=== PATIENT | female | born 1935 | race Caucasian/White ===

== ENCOUNTER → 2017-01-25 | Outpatient (CLI) | payer OTHER | LOC: FIMAGING 08:32 | PROVIDERS: ATTEND Family Medicine Geriatric Medicine | DX: E80.7 Disorder of bilirubin metabolism, unspecified (principal) ==

== ENCOUNTER 2017-10-26 15:32 | Inpatient (IN) | payer OTHER ==
--- NOTE | 2017-10-26 15:56 | EDPHY ---
HPI/HX/ROS/PE/MDM Narrative: CHIEF COMPLAINT: Dizziness, difficulty with words HISTORY OF PRESENT ILLNESS: The patient is an 82 y/o female with a history of atrial fibrillation complaining of dizziness and difficulty finding words, onset at 08:30, 7.5 hours ago. When her symptoms began she also had difficulty focusing on objects with her eyes. She had difficulty telling her detective investigator what to do. No numbness or tingling in face, no weakness in arms or legs. She laid in bed until 10:00 when she was able to stand. At 14:00, her corrugated box machine operator arrived and noticed that the patient had mild difficulty finding her words. She also seemed more confused than normal. She currently has a mild headache. She does have previous episodes where her vision blacks out, but does not lose consciousness. No fever, chills, chest pain, shortness of breath, palpitations, vomiting, diarrhea, urinary complaints, lightheadedness. REVIEW OF SYSTEMS: Aside from elements discussed in the HPI, a comprehensive 10-point review of systems was reviewed and is negative. PAST MEDICAL HISTORY: Atrial fibrillation, pancreas cancer, breast cancer, hysterectomy, neuroendocrine tumor SOCIAL HISTORY: teacher's assistant at bedside, lives in [place], retired VITAL SIGNS: Reviewed by me GENERAL: Well-developed, well-nourished, resting comfortably in no respiratory distress. HEENT: Atraumatic. Eyes: No icterus, no injection. Mouth: moist mucous membranes. No erythema or lesions. Neck: supple with no adenopathy. LUNGS: Clear to auscultation bilaterally, no wheezes, rhonchi or rales. CARDIAC: Regular rate and rhythm, no rubs, murmurs or gallops. ABDOMEN: Soft, nontender, nondistended, bowel sounds normal. BACK: No CVA tenderness. EXTREMITIES: No trauma. No edema. Range of motion is normal throughout. NEURO: Feels imbalanced while moving in bed. Alert and oriented, cranial nerves II through XII are intact. Motor strength 5 over 5 in all major muscle groups. Sensation intact to light touch. Speech is fluent and articulate. SKIN: Warm and dry, no rash. PSYCHIATRIC: Normal mentation, no agitation. Portions of this note were transcribed by a medical record librarian. I personally performed a history, physical exam, medical decision making, and confirmed accuracy of information the transcribed note. ED Course: The patient is an 82 y/o female with a history of atrial fibrillation presenting with difficulty finding her words and dizziness, onset at 08:30, 7.5 hours ago. Her neuro exam is normal. Head CT, EKG, and chest CT ordered. 1602: Stroke alert called. 1605: Spoke with radiologist regarding this patient's head CT. There is no definite acute infarct visualized. 1610: Reassessed patient. Dr. Stovall, the neurologist from [facility] is currently on evaluating the patient via the tele stroke robot. Upon further questioning she states she was not feeling well in when she woke up. She describes that she had difficulty feeding her pets this morning but is unable to explain why. Based on his information, it is unknown when she was last seen mentating normally. 1623: 12-LEAD EKG: Please see the full report in Trace Master. My interpretation: Sinus rhythm with a rate of 61 1624: Consulted with Dr. Stovall regarding this patient. Patient will undergo angiogram of the head and neck and be admitted to the hospital for further evaluation of TIA. 1705: Spoke with radiologist, no acute findings on the CTA's. This patient will need to be admitted to rule out a TIA. 1731: Consulted with hospitalist service, Dr. Carlos accepts admission of this patient. MDM: Differential diagnoses the patient's presenting complaints was considered including but not limited to intracranial injury, TIA, ischemic cerebrovascular accident, hemorrhagic cerebrovascular accident, hypoglycemia, complex migraine , metastases, tumor, seizure, or electrolyte abnormality - Data Points Imaging Results: Imaging Impressions Chest X-Ray 10/26/17 16:02 Impression: Clear lungs. No acute process. Head CT 10/26/17 16:02 Impression: 1. Mild atrophy. 2. No acute hemorrhage, hydrocephalus, or mass effect. 3. Cerebrovascular atherosclerosis. 4. No definite acute infarct. 5. Severe microvascular ischemic gliosis. 6. Old right occipital lobe infarct and possible old left basal ganglia lacunar infarct. 7. Consider MRI of the brain, if there is continued clinical concern. Findings and recommendations discussed with Emergency Department physician, Dr. Caridad Wilkinson at 1605 hours on October 26, 2017. Final report concurs with initial preliminary interpretation. Head CTA 10/26/17 16:26 Impression: 1. Mild atherosclerotic disease right carotid bulb. 2. No evidence of right carotid flow-limiting stenosis, occlusion or dissection. 3. Patent vertebrobasilar system without evidence of flow-limiting stenosis, occlusion or dissection. 4. Severe cervical spondylosis resulting in severe central canal stenosis at C5- C6. Consider MRI of cervical spine. Measurement of carotid stenosis is based on the residual internal carotid diameter with [place] Symptomatic Carotid Endarterectomy Trial (NASCET) based stenosis levels. CT Angiogram of the Brain Clinical Indications: Word finding difficulty resolved. History of atrial fibrillation, transient ischemic attack. Technique: CT angiogram of the brain and neck was performed with the uneventful intravenous administration of 85 mL Isovue-370 contrast. Multiplanar reconstructions including 3D reconstructions performed and evaluated on Dragon Ports workstation in order to better evaluate the [place] vessels. Images were manipulated by the radiologist at the computer workstation. Dose reduction techniques were utilized. Findings: Major vessels of the [place] are adequately displayed, demonstrating mild atherosclerotic plaque involving bilateral cavernous internal carotid arteries. No Evidence of aneurysm, vascular malformation, flow- limiting stenosis, or occlusion. Bilateral cavernous internal carotid arteries and vertebrobasilar system demonstrates no evidence of flow-limiting stenosis, aneurysm, occlusion, or dissection. Superior sagittal sinus, transverse sinuses , and major veins demonstrate no evidence of intraluminal thrombi. Impression: 1. Mild cerebrovascular atherosclerosis in bilateral cavernous internal carotid arteries. 2. No evidence of vertebral basilar, distal internal carotid artery, or [place] flow-limiting stenosis, occlusion, dissection, or intraluminal thrombi. Findings and recommendations discussed with Emergency Department physician, Dr. Caridad Wilkinson at 1700 hours on October 26, 2017. Final report concurs with initial preliminary interpretation. Neck CTA 10/26/17 16:26 Impression: 1. Mild atherosclerotic disease right carotid bulb. 2. No evidence of right carotid flow-limiting stenosis, occlusion or dissection. 3. Patent vertebrobasilar system without evidence of flow-limiting stenosis, occlusion or dissection. 4. Severe cervical spondylosis resulting in severe central canal stenosis at C5- C6. Consider MRI of cervical spine. Measurement of carotid stenosis is based on the residual internal carotid diameter with [place] Symptomatic Carotid Endarterectomy Trial (NASCET) based stenosis levels. CT Angiogram of the Brain Clinical Indications: Word finding difficulty resolved. History of atrial fibrillation, transient ischemic attack. Technique: CT angiogram of the brain and neck was performed with the uneventful intravenous administration of 85 mL Isovue-370 contrast. Multiplanar reconstructions including 3D reconstructions performed and evaluated on [employer] workstation in order to better evaluate the [place] vessels. Images were manipulated by the radiologist at the computer workstation. Dose reduction techniques were utilized. Findings: Major vessels of the [place] are adequately displayed, demonstrating mild atherosclerotic plaque involving bilateral cavernous internal carotid arteries. No Evidence of aneurysm, vascular malformation, flow- limiting stenosis, or occlusion. Bilateral cavernous internal carotid arteries and vertebrobasilar system demonstrates no evidence of flow-limiting stenosis, aneurysm, occlusion, or dissection. Superior sagittal sinus, transverse sinuses , and major veins demonstrate no evidence of intraluminal thrombi. Impression: 1. Mild cerebrovascular atherosclerosis in bilateral cavernous internal carotid arteries. 2. No evidence of vertebral basilar, distal internal carotid artery, or [place] flow-limiting stenosis, occlusion, dissection, or intraluminal thrombi. Findings and recommendations discussed with Emergency Department physician, Dr. Caridad Wilkinson at 1700 hours on October 26, 2017. Final report concurs with initial preliminary interpretation. Imaging: Discussed imaging studies w/ calliope player Radiologist, I viewed and interpreted images myself Laboratory Results: Laboratory Results 10/26/17 15:56 10/26/17 15:56 10/26/17 10/26/17 10/26/17 16:01 15:56 15:56 WBC RBC Hgb POC Hgb 14.3 gm/dL gm/dL (12.6-16.3) Hct POC Hct 42 % % (38-47) MCV MCH MCHC RDW Plt Count MPV Neut % (Auto) Lymph % (Auto) [place] % (Auto) Eos % (Auto) Baso % (Auto) Nucleat RBC Rel Count Absolute Neuts (auto) Absolute Lymphs (auto) Absolute Monos (auto) Absolute Eos (auto) Absolute Basos (auto) Absolute Nucleated RBC Immature Gran % Immature Gran # PT INR POC Sodium 139 mEq/L mEq/L (135-145) Sodium 136 mEq/L mEq/L (135-145) POC Potassium 3.6 mEq/L mEq/L (3.3-5.0) Potassium 3.8 mEq/L mEq/L (3.5-5.2) POC Chloride 99 mEq/L mEq/L (97-110) Chloride 99 mEq/L mEq/L (97-110) Carbon Dioxide 30 mEq/l mEq/l (22-31) Anion Gap 7 mEq/L L mEq/L (8-16) POC BUN 18 mg/dL mg/dL (7-23) BUN 18 mg/dL mg/dL (7-23) Creatinine 0.8 mg/dL mg/dL (0.6-1.0) POC Creatinine 0.9 mg/dL mg/dL (0.6-1.0) Estimated GFR > 60 Glucose 122 mg/dL H mg/dL (70-100) POC Glucose 132 mg/dL H mg/dL (70-100) Calcium 9.4 mg/dL mg/dL (8.5-10.4) Troponin I < 0.012 ng/mL ng/mL (0.000-0.034) 10/26/17 10/26/17 15:56 15:56 WBC 7.79 10^3/uL 10^3/uL (3.80-9.50) RBC 4.27 10^6/uL 10^6/uL (4.18-5.33) Hgb 13.5 g/dL g/dL (12.6-16.3) POC Hgb Hct 39.5 % % (38.0-47.0) POC Hct MCV 92.5 fL fL (81.5-99.8) MCH 31.6 pg pg (27.9-34.1) MCHC 34.2 g/dL g/dL (32.4-36.7) RDW 15.5 % H % (11.5-15.2) Plt Count 283 10^3/uL 10^3/uL (150-400) MPV 10.0 fL fL (8.7-11.7) Neut % (Auto) 62.5 % % (39.3-74.2) Lymph % (Auto) 23.7 % % (15.0-45.0) [place] % (Auto) 10.1 % % (4.5-13.0) Eos % (Auto) 1.8 % % (0.6-7.6) Baso % (Auto) 1.4 % % (0.3-1.7) Nucleat RBC Rel Count 0.0 % % (0.0-0.2) Absolute Neuts (auto) 4.86 10^3/uL 10^3/uL (1.70-6.50) Absolute Lymphs (auto) 1.85 10^3/uL 10^3/uL (1.00-3.00) Absolute Monos (auto) 0.79 10^3/uL 10^3/uL (0.30-0.80) Absolute Eos (auto) 0.14 10^3/uL 10^3/uL (0.03-0.40) Absolute Basos (auto) 0.11 10^3/uL H 10^3/uL (0.02-0.10) Absolute Nucleated RBC 0.00 10^3/uL 10^3/uL (0-0.01) Immature Gran % 0.5 % % (0.0-1.1) Immature Gran # 0.04 10^3/uL 10^3/uL (0.00-0.10) PT 12.5 SEC SEC (12.0-15.0) INR 0.91 (0.83-1.16) POC Sodium Sodium POC Potassium Potassium POC Chloride Chloride Carbon Dioxide Anion Gap POC BUN BUN Creatinine POC Creatinine Estimated GFR Glucose POC Glucose Calcium Troponin I Point of Care Test Results: 10/26/17 16:01 POC Sodium 139 POC Potassium 3.6 POC Chloride 99 POC BUN 18 POC Creatinine 0.9 POC Glucose 132 H General Time Seen by Provider: 10/26/17 15:46 Initial Vital Signs: Initial Vital Signs Temperature (C) 36.5 C 10/26/17 15:38 Heart Rate 67 10/26/17 15:38 Respiratory Rate 18 10/26/17 15:38 Blood Pressure 153/74 H 10/26/17 15:38 O2 Sat (%) 95 10/26/17 15:38 O2 Delivery Mode Room Air Allergies/Adverse Reactions: latex Allergy (Verified 10/26/17 15:37) Home Medications: Medication Instructions Recorded Aspirin 81mg (OTC) 81 mg PO DAILY 03/11/15 Fluticasone Nasal [Flonase Nasal 2 sprays NASAL DAILY 03/11/15 [place]] Herbals/Supplements -Info Only 1 ea PO DAILY 03/11/15 Lact Cmb2/S.thermophl/Bif Cmb1 1 each PO DAILY 03/11/15 [Vsl#3 Cap (*)] Lipase/Protease/Amylase [Rikki Ibrahim 2 each PO TIDMEAL 03/11/15 36,000 Units Capsule] Multivitamins [Multivitamin (*)] 1 each PO DAILY 03/11/15 [place]-3 Fatty Acids [Fish Oil 1000 3,000 mg PO DAILY 03/11/15 mg (*)] Solifenacin Succinate [Vesicare] 10 mg PO DAILY 03/11/15 Vitamin D Drop 20,000 unit PO DAILY 03/11/15 cycloSPORINE 0.05% [Restasis Opht 1 drop EACHEYE BID 03/11/15 Drops(*)] Departure - Departure Disposition: [facility] Inpatient Acute Clinical Impression: Word finding difficulty, Confusion TIA (transient ischemic attack) Qualifiers: Transient cerebral ischemia type: other Qualified Code(s): G45.8 - Other transient cerebral ischemic attacks and related syndromes Condition: Fair Report Scribed for: Caridad Wilkinson Report Scribed by: Mariann Banda Date of Report: 10/26/17 Time of Report: 15:54
[2017-10-26 16:07] LABS: PLATELET COUNT 283 10^3/uL (150-400)
[2017-10-26 16:19] LABS: INR 0.91 (0.83-1.16); PROTIME(PATIENT) 12.5 SEC (12.0-15.0)
--- NOTE | 2017-10-26 16:25 | CPEKG ---
Heart Rate: 61 RR Interval: 984 P-R Interval: 216 QRSD Interval: 84 QT Interval: 420 QTC Interval: 423 P [place]: 45 QRS [place]: 44 T Wave [place]: 82 EKG Severity - NORMAL ECG - EKG Impression: SINUS RHYTHM Electronically Signed By: Caridad Wilkinson 26-Oct-2017 21:21:44
[2017-10-26] MEDS ORDERED: IOPAMIDOL (ISOVUE 370) 100 ML BTL IV ONE (16:33)
[2017-10-26] MEDS ORDERED: ONDANSETRON DISINTEGRATING 4 MG TAB PO PRN (20:37)
[2017-10-26] MEDS ORDERED: ONDANSETRON 4 MG/2 ML VIAL IVP PRN (20:37)
[2017-10-26] MEDS ORDERED: ACETAMINOPHEN 325 MG TAB PO PRN (20:37)
--- NOTE | 2017-10-26 20:46 | PDGENHP ---
History and Physical - Chief Complaint dizzyness, word finding difficulty - History of Present Illness The patient is an 82 y/o female with a history of atrial fibrillation, not on chronic AC, vestibular disease with vertigo, who had dizziness and difficulty finding words, onset at 08:30. When her symptoms began she also had difficulty focusing on objects with her eyes. She had difficulty telling her media marketing specialist what to do. No numbness or tingling in face, no weakness in arms or legs. She laid in bed until 10:00 when she was able to stand. At 14:00, her broom machine operator arrived and noticed that the patient had mild difficulty finding her words. She also seemed more confused than normal and she presented to the E.D. IN the E.D., [place] neurology was consulted. A CT Head, CTA Head/Neck were unremarkable for acute issues. She is now back to baseline and is seen on the third floor. She has longstanding Vestibular disease and vertigo but she reports that these symptoms were different. She has a hx of pAfib for over 10 years and she is on a low dose Aspirin. She does no want AC going forward as her had some sort of bleeding event. She denies palpitations. She does not recall the last time she was in Afib. EKG shows NSR. No e/o Afib. She denies HLD or DM No fever, chills, chest pain, shortness of breath, palpitations, vomiting, diarrhea, urinary complaints, lightheadedness. PAST MEDICAL HISTORY: Atrial fibrillation, breast cancer, hysterectomy, neuroendocrine tumor in the pancreas, verstibular disease PSHx: bilateral Mastectomy, Pancreas tail resection SOCIAL HISTORY: assistant in nursing at bedside, lives in [place], retired FmHx: parents are History Information - Allergies/Home Medication List Allergies/Adverse Reactions: latex Allergy (Verified 10/26/17 15:37) Home Medications: Aspirin [Aspirin 81mg (*)] 81 mg PO HS #0 03/11/15 [Last Taken 10/26/17] Fluticasone Nasal [Flonase Nasal [place]] 2 sprays NASAL DAILY 03/11/15 [Last Taken 10/26/17] Herbals/Supplements -Info Only 1 ea PO DAILY 03/11/15 [Last Taken 10/26/17] Lact Cmb2/S.thermophl/Bif Cmb1 [Vsl#3 Cap (*)] 1 each PO DAILY 03/11/15 [Last Taken 10/26/17] Lipase/Protease/Amylase [Rikki Ibrahim 36,000 Units Capsule] 2 each PO TIDMEAL [Last Taken 10/26/17] Multivitamins [Multivitamin (*)] 1 each PO DAILY 03/11/15 [Last Taken Unknown] [place]-3 Fatty Acids [Fish Oil 1000 mg (*)] 3,000 mg PO DAILY 03/11/15 [Last Taken 10/26/17] cycloSPORINE 0.05% [Restasis Opht Drops(*)] 1 drop EACHEYE BID 03/11/15 [Last Taken 10/25/17] Mirabegron [Myrbetriq] 50 mg PO DAILY 10/26/17 [Last Taken 10/26/17] I have personally reviewed and updated: medical history, social history - Social History Smoking Status: Never smoked Review of Systems Review of Systems: ROS: 10pt was reviewed & negative except for what was stated in HPI & below Physical Exam Physical Exam: Temp Pulse Resp BP Pulse Ox 36.5 C 86 18 148/86 H 96 10/26/17 15:38 10/26/17 20:06 10/26/17 19:29 10/26/17 20:06 10/26/17 19:29 Constitutional: no apparent distress, appears nourished Eyes: PERRL, EOMI Ears, Nose, Mouth, Throat: moist mucous membranes, hearing normal, No dry mucous membranes Cardiovascular: regular rate and rhythym, No edema Respiratory: no respiratory distress Gastrointestinal: normoactive bowel sounds, soft, non-tender abdomen Genitourinary: no bladder fullness Skin: warm Musculoskeletal: full muscle strength Neurologic: AAOx3, CN II-XII Intact, No weakness, No facial droop Lymph, Heme, Immunologic: No petechiae Lab Data & Imaging Review 10/26/17 15:56 10/26/17 15:56 WBC 7.79 10^3/uL (3.80-9.50) 10/26/17 15:56 RBC 4.27 10^6/uL (4.18-5.33) 10/26/17 15:56 Hgb 13.5 g/dL (12.6-16.3) 10/26/17 15:56 POC Hgb 14.3 gm/dL (12.6-16.3) 10/26/17 16:01 Hct 39.5 % (38.0-47.0) 10/26/17 15:56 POC Hct 42 % (38-47) 10/26/17 16:01 MCV 92.5 fL (81.5-99.8) 10/26/17 15:56 MCH 31.6 pg (27.9-34.1) 10/26/17 15:56 MCHC 34.2 g/dL (32.4-36.7) 10/26/17 15:56 RDW 15.5 % (11.5-15.2) H 10/26/17 15:56 Plt Count 283 10^3/uL (150-400) 10/26/17 15:56 MPV 10.0 fL (8.7-11.7) 10/26/17 15:56 Neut % (Auto) 62.5 % (39.3-74.2) 10/26/17 15:56 Lymph % (Auto) 23.7 % (15.0-45.0) 10/26/17 15:56 [place] % (Auto) 10.1 % (4.5-13.0) 10/26/17 15:56 Eos % (Auto) 1.8 % (0.6-7.6) 10/26/17 15:56 Baso % (Auto) 1.4 % (0.3-1.7) 10/26/17 15:56 Nucleat RBC Rel Count 0.0 % (0.0-0.2) 10/26/17 15:56 Absolute Neuts (auto) 4.86 10^3/uL (1.70-6.50) 10/26/17 15:56 Absolute Lymphs (auto) 1.85 10^3/uL (1.00-3.00) 10/26/17 15:56 Absolute Monos (auto) 0.79 10^3/uL (0.30-0.80) 10/26/17 15:56 Absolute Eos (auto) 0.14 10^3/uL (0.03-0.40) 10/26/17 15:56 Absolute Basos (auto) 0.11 10^3/uL (0.02-0.10) H 10/26/17 15:56 Absolute Nucleated RBC 0.00 10^3/uL (0-0.01) 10/26/17 15:56 Immature Gran % 0.5 % (0.0-1.1) 10/26/17 15:56 Immature Gran # 0.04 10^3/uL (0.00-0.10) 10/26/17 15:56 PT 12.5 SEC (12.0-15.0) 10/26/17 15:56 INR 0.91 (0.83-1.16) 10/26/17 15:56 POC Sodium 139 mEq/L (135-145) 10/26/17 16:01 Sodium 136 mEq/L (135-145) 10/26/17 15:56 POC Potassium 3.6 mEq/L (3.3-5.0) 10/26/17 16:01 Potassium 3.8 mEq/L (3.5-5.2) 10/26/17 15:56 POC Chloride 99 mEq/L (97-110) 10/26/17 16:01 Chloride 99 mEq/L (97-110) 10/26/17 15:56 Carbon Dioxide 30 mEq/l (22-31) 10/26/17 15:56 Anion Gap 7 mEq/L (8-16) L 10/26/17 15:56 POC BUN 18 mg/dL (7-23) 10/26/17 16:01 BUN 18 mg/dL (7-23) 10/26/17 15:56 Creatinine 0.8 mg/dL (0.6-1.0) 10/26/17 15:56 POC Creatinine 0.9 mg/dL (0.6-1.0) 10/26/17 16:01 Estimated GFR > 60 10/26/17 15:56 Glucose 122 mg/dL (70-100) H 10/26/17 15:56 POC Glucose 132 mg/dL (70-100) H 10/26/17 16:01 Calcium 9.4 mg/dL (8.5-10.4) 10/26/17 15:56 Troponin I < 0.012 ng/mL (0.000-0.034) 10/26/17 15:56 Urine Color YELLOW 10/26/17 17:00 Urine Appearance CLEAR 10/26/17 17:00 Urine pH 7.0 (5.0-7.5) 10/26/17 17:00 Ur Specific [place] 1.015 (1.002-1.030) 10/26/17 17:00 Urine Protein NEGATIVE (NEGATIVE) 10/26/17 17:00 Urine Ketones NEGATIVE (NEGATIVE) 10/26/17 17:00 Urine Blood NEGATIVE (NEGATIVE) 10/26/17 17:00 Urine Nitrate NEGATIVE (NEGATIVE) 10/26/17 17:00 Urine Bilirubin NEGATIVE (NEGATIVE) 10/26/17 17:00 Urine Urobilinogen NEGATIVE EU (0.2-1.0) 10/26/17 17:00 Ur Leukocyte Esterase 1+ (NEGATIVE) H 10/26/17 17:00 Urine RBC 1-3 /hpf (0-3) 10/26/17 17:00 Urine WBC 3-5 /hpf (0-3) H 10/26/17 17:00 Ur Epithelial Cells NONE SEEN /lpf (NONE-1+) 10/26/17 17:00 Urine Mucus TRACE /lpf (NONE-1+) 10/26/17 17:00 Urine Glucose NEGATIVE (NEGATIVE) 10/26/17 17:00 Assessment & Plan Assessment: #Confusion (Acute) #?TIA (transient ischemic attack) vs other to include Vertigo/Vestibular sx's #pAfib, no e/o on EKG Plan: Ill increase her Aspirin to full dose monitor on Telemetry to determine if there is afib She does not want to be on AC so if needed, we will need to discus pros and cons closely check for risk factors, lipid panel, a1c PT/OT Hold off on TTE Permissive HTN tonight if she develops it I will hold off on obtaining an MRI DNR Lovenox for DVT proph
[2017-10-26] MEDS: ASPIRIN 325 MG TAB PO SCH (21:34)
[2017-10-26] MEDS: cycloSPORINE 0.05% 30 DROPERETTE/BOX EACHEYE SCH (21:47)
[2017-10-27 05:05] LABS: PLATELET COUNT 278 10^3/uL (150-400)
[2017-10-27] MEDS ORDERED: Herbals/Supplements -Info Only PO SCH (09:00)
--- NOTE | 2017-10-27 09:08 | CPEKG ---
Heart Rate: 66 RR Interval: 909 P-R Interval: 184 QRSD Interval: 88 QT Interval: 412 QTC Interval: 432 P [place]: 78 QRS [place]: 57 T Wave [place]: 69 EKG Severity - BORDERLINE ECG - EKG Impression: SINUS RHYTHM EKG Impression: BORDERLINE T ABNORMALITIES, ANT-LAT LEADS Electronically Signed By: Chandan Alexander 27-Oct-2017 20:40:48
--- NOTE | 2017-10-27 09:31 | NEUROPROG ---
Assessment: HOSPITAL NEUROLOGY CONSULT REQUESTING: Nafisa Rich NP REASON: word finding problems HPI: 82 year old right-handed woman presented to our ED yesterday with concern for a stroke/TIA. History is obtained from the record, as the patient cannot recall the events of yesterday. She lives with her daughter, who is her primary physician president. I cannot find any documentation on any baseline cognitive challenges. She apparently started feeling dizzy around 0830 on day of admission. This was accompanied by word finding trouble and confusion. She also apparently reported difficulty focusing her vision, but nothing more specific. This concerned her daughter, who arrived home around 1400. She was brought to the ED as a stroke alert, but not given tPA due to being out of the thrombolytic window. CTA showed no hemodynamically significant stenosis or occlusions amenable to intervention. She was admitted for further workup. There was no indication of focal weakness, sensory loss, gait change, speech change. She has chronic episodic vertigo. She also has a history of syncope and afib. She has refused anticoagulation against medical advice and only takes ASA 81mg daily. She has experienced episodes of AMS in the past related to dehydration. ROS: As per the HPI, otherwise a complete 12 point ROS was performed and is negative ALLERGIES AND MEDS: As recorded in the EMR - reviewed and reconciled PFSH: As per the intake H&P by Dr. Carlos from yesterday EXAM: VS reviewed in EMR GEN: WDWN sitting in NAD HEENT: NCAT, sclera anicteric, conjunctiva not injected, MMM, oropharynx clear, no scalp tenderness NECK: supple, nontender, no meningismus CV: RRR s1 s2 wo m/r/c/g. Carotid pulses 2+ wo bruit NEURO: MS: awake, alert, oriented to self only. Speech nondysarthric. On formal language testing she is able to read, write, repeat, name, comprehend without difficulty. On casual conversation she seems to pause frequently, as if trying to recall information - she seems to either be experiencing word finding issues not apparent on formal testing or recall issues. Follows commands. Attends to both sides. Episodic/recent memory impaired on casual conversation. Mood euthymic. Good fund of knowledge. CN: pupils 3mm round and reactive. Unable to visualize. VFF. Primary gaze centered. Restricted vertical gaze. Smooth pursuits with saccadic intrusions. Facial sensation preserved. Face symmetric. Hearing grossly intact to finger rub. Palatoglossal movements intact. Shoulder shrug and head turn strong. MOTOR: normal bulk/tone. No adventitial movements. Full power throughout. SENSORY: symmetric/intact LT/PP in extremities. No extinction. COORD: no ataxia FN/HS. Mellisa preserved. REFLEX: plantars down. No clonus. DTRS absent. GAIT: deferred to PT safety eval DATA REVIEW: Labs reviewed in EMR LDL 124 A1c 6 PERSONALLY INTERPRETED RESULTS AND DATA: CT head wo - global volume loss. 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 CTA head/neck per HPI IMPRESSION AND RECOMMENDATIONS: // WORD FINDING DIFFICULTY // COGNITIVE IMPAIRMENT // VERTIGO // AFIB NOT ON ANTICOAGULATION Patient with ongoing word finding vs. memory impairment. Her vertigo and vision focusing issues seem to have resolved. I recommend MRI brain wo given ongoing symptoms to further evaluate for ischemia to language centers or mesial temporal structures. Embolic shower can also produce similar symptoms. She has evidence of prior infarcts on CT, so vascular risk optimization of utmost importance. She should certainly reconsider anticoagulation. - MRI brain wo - cont ASA - increased to 325mg - permissive HTN until MRI resulted - add statin for goal LDL < 70 - A1c at goal < 6.5 - check TTE - PT/OT/TIGHT ROPE WALKER consults - stroke education - further recommendations pending MRI results Objective: Vital Signs Temp Pulse Resp BP Pulse Ox 36.7 C 75 18 124/69 H 93 10/27/17 08:00 10/27/17 08:00 10/27/17 08:00 10/27/17 08:00 10/27/17 08:00 Laboratory Results 10/27/17 04:14 10/27/17 04:14 PT 12.5 SEC (12.0-15.0) 10/26/17 15:56 INR 0.91 (0.83-1.16) 10/26/17 15:56 Allergies/Adverse Reactions: latex Allergy (Verified 10/26/17 15:37)
[2017-10-27] MEDS: MULTIVITAMINS 1 EACH TAB PO SCH (10:06)
[2017-10-27] MEDS: ASPIRIN 325 MG TAB PO SCH (10:06)
[2017-10-27] MEDS: ENOXAPARIN 40 MG/0.4 ML SYR SC SCH (10:07)
[2017-10-27] MEDS: Lipase/Protease/Amylase [Creon Dr 36,000 Units Capsule] PO SCH ×3 (10:07→19:20)
[2017-10-27] MEDS: VSL#3 1 EACH CAP PO SCH (10:07)
[2017-10-27] MEDS: OMEGA-3 FATTY ACIDS 1,000 MG CAP PO SCH (10:07)
[2017-10-27] MEDS: Mirabegron [Myrbetriq] 50 MG PO SCH (10:08)
--- NOTE | 2017-10-27 11:44 | ECHO ---
[email or web address] [address] [address] Main: [phone] Fax: Transthoracic Echocardiogram Name: RJ BALDERAS MR#: [id number] Study Date: 10/27/2017 Study Time: 10:05 AM Date of : 1935 Age: 82 year(s) Height: 175.3 cm (69 in.) Weight: 68.04 kg (150 lb.) BSA: 1.83 m2 Gender: Female Examination: Echo Indication: Word finding difficulties/stroke eval/hx Afib not on anticoag Image Quality: Contrast: Requested by: Tay Sanabria BP: 124 mmHg/69 mmHg Heart Rate: Rhythm: Indication: Word finding difficulties/stroke eval/hx Afib not on anticoag Procedure Staff Weigh Machine Operator: Kiana Handy RDCS Reading Physician: Tal Clements MD Requesting Provider: Conclusions: Normal study Measurements: Chambers Valvular Assessment AV/MV Valvular Assessment TV/PV Normal Normal Normal Name Value Range Name Value Range Name Value Range Ao Christina (MM): 3.3 cm (2.2 cm-3.7 AV Vmax: 1.05 m/s (1 m/s-1.7 cm) m/s) IVSd (2D): 0.6 cm (0.6 cm-1.1 AV maxP mmHg ( - ) cm) MV E Vmax: 0.66 m/s ( - ) LVDd (2D): 4.3 cm (3.9 cm-5.3 MV A Vmax: 0.74 m/s ( - ) cm) MV E/A: 0.89 ( - ) LVDs (2D): 2.2 cm (2.1 cm-4 cm) LVPWd (2D): 0.8 cm ( - ) LVEF (MOD4): 73 % (>=55 %) Continued Measurements: Chambers Valvular Assessment AV/MV Name Value Name Value LADs: 3.3 cm MV E/E' Septal: 9.50 MV E/E' Lateral: 12.00 Findings: Left Ventricle: Normal size left ventricle. Mild concentric LV hypertrophy. Normal global systolic LV function. EF is 73 %. No regional wall motion abnormality. Normal diastolic LV function. Patient: RJ BALDERAS Study Date: 10/27/2017 Page 1 of 2 10:05 AM Right Ventricle: Normal size right ventricle. Left Atrium: The left atrium is normal in size. An agitated saline study was performed and was negative for intracardiac shunting. Right Atrium: The right atrium is normal in size. Mitral Valve: The mitral valve is normal in appearance and function. Aortic Valve: The aortic valve is normal in appearance and function. Tricuspid Valve: The tricuspid valve is normal in appearance and function. Mild tricuspid regurgitation is present. Pulmonic Valve: Pulmonary valve not well visualized. Aorta: The aorta is normal. Pericardium: No pericardial effusion. (No Signature Object) Patient: RJ BALDERAS Study Date: 10/27/2017 Page 2 of 2 10:05 AM [id number]
--- NOTE | 2017-10-27 13:21 | HOSPPROG ---
Hospitalist Progress Note Assessment/Plan: 82y female with c/o confusion and word finding problems. First encounter, chart reviewed. D/W CM. # Word finding problem -neurology consult -logger eval -MRI of brain # Cognitive impairment with confusion -baseline unclear -cont to eval - A1c at goal < 6.5 - check TTE -tele monitor # Vertigo -intermittent #HTN - permissive HTN until MRI resulted #Elevated cholesterol - add lipitor for goal LDL < 70 # Afib -monitor tele -not anticoagulated -d/w pt, deferred to daughter -will review with daughter when present - cont ASA - increased to 325mg # DNR #DVT Proph -Lovenox for DVT proph Subjective: Still some confusion. No pain or other issues. Objective: Vital Signs Temp Pulse Resp BP Pulse Ox 36.6 C 75 16 110/55 L 92 10/27/17 11:33 10/27/17 11:33 10/27/17 11:33 10/27/17 11:33 10/27/17 11:33 Laboratory Results 10/27/17 04:14 10/27/17 04:14 10/26/17 10/27/17 10/28/17 05:59 05:59 05:59 Intake Total 400 Balance 400 PT 12.5 SEC (12.0-15.0) 10/26/17 15:56 INR 0.91 (0.83-1.16) 10/26/17 15:56 - Physical Exam Constitutional: appears nourished, not in pain, chronically ill appearing Eyes: PERRL, anicteric sclera, EOMI Ears, Nose, Mouth, Throat: moist mucous membranes, hearing normal, ears appear normal Cardiovascular: regular rate and rhythym, No JVD, No tachycardia Respiratory: no respiratory distress, no rales or rhonchi, clear to auscultation Gastrointestinal: normoactive bowel sounds, No tenderness, No ascites Skin: warm, normal color, No mottled Musculoskeletal: normal joint ROM, no joint effusions, generalized weakness Neurologic: AAOx3 Psychiatric: interacting appropriately, not encephalopathic, poor insight, poor judgement, poor memory ICD10 Worksheet Patient Problems: Problems Problem Status Onset Confusion Acute TIA (transient ischemic attack) Acute Word finding difficulty Acute Vertigo Acute
--- NOTE | 2017-10-27 13:24 | ASMTCMCOM ---
CM Note CM Note Notes: Discussed w/hospitalist; pt still being worked up. DC needs not clear yet, awaiting therapy recommendations. Pt lives at home w/daughter. CM will follow. Date Signed: 10/27/2017 01:24 PM Electronically Signed By:Lelo Wolf RN
[2017-10-27] MEDS: FLUTICASONE NASAL 120 SPRAYS/16 GM MDI EACHNARE SCH (14:54)
[2017-10-27] MEDS: cycloSPORINE 0.05% 30 DROPERETTE/BOX EACHEYE SCH ×2 (14:55→21:05)
--- NOTE | 2017-10-27 16:46 | PDMN ---
Medical Necessity Medical necessity: Patient meets inpatient criteria per STEEL WORKER note, CMS guidelines , and [facility] (altered mental status that is severe or persistent: ongoing confusion/difficulty wordfinding; history of previous CVA's and atrial fib, has refused anticoagulation other than ASA, LOS will be > 2 midnights for ongoing evaluation of possible cerebral ischemia to language centers/awaiting MRI, ongoing PT/OT.)
[2017-10-27] MEDS ORDERED: BISACODYL 10 MG SUPP PR PRN (20:07)
[2017-10-27] MEDS ORDERED: LACTULOSE 20 GM/30 ML UDCUP PO PRN (20:07)
[2017-10-27] MEDS ORDERED: MAGNESIUM HYDROXIDE 30 ML UDCUP PO PRN (20:07)
[2017-10-27] MEDS: POLYETHYLENE GLYCOL 3350 17 GM PKT PO PRN (20:58)
[2017-10-27] MEDS: SENNOSIDES/DOCUSATE SODIUM TAB PO SCH (20:59)
[2017-10-28] MEDS: Mirabegron [Myrbetriq] 50 MG PO SCH (08:22)
[2017-10-28] MEDS: Lipase/Protease/Amylase [Creon Dr 36,000 Units Capsule] PO SCH ×2 (08:22→13:26)
[2017-10-28] MEDS: POLYETHYLENE GLYCOL 3350 17 GM PKT PO PRN (08:29)
[2017-10-28] MEDS: VSL#3 1 EACH CAP PO SCH (08:31)
[2017-10-28] MEDS: SENNOSIDES/DOCUSATE SODIUM TAB PO SCH (08:31)
[2017-10-28] MEDS: ASPIRIN 325 MG TAB PO SCH (08:31)
[2017-10-28] MEDS: OMEGA-3 FATTY ACIDS 1,000 MG CAP PO SCH (08:32)
[2017-10-28] MEDS: MULTIVITAMINS 1 EACH TAB PO SCH (08:32)
[2017-10-28] MEDS: ENOXAPARIN 40 MG/0.4 ML SYR SC SCH (08:33)
[2017-10-28] MEDS: cycloSPORINE 0.05% 30 DROPERETTE/BOX EACHEYE SCH (08:33)
[2017-10-28] MEDS ORDERED: ATORVASTATIN CALCIUM 20 MG TAB PO SCH ×2 (09:00→11:19)
--- NOTE | 2017-10-28 11:18 | NEUROPROG ---
Assessment: BACKGROUND: 10/27 82 year old right-handed woman presented to our ED yesterday with concern for a stroke/TIA. History is obtained from the record, as the patient cannot recall the events of yesterday. She lives with her daughter, who is her primary finishing supervisor plastic sheets. I cannot find any documentation on any baseline cognitive challenges. She apparently started feeling dizzy around 0830 on day of admission. This was accompanied by word finding trouble and confusion. She also apparently reported difficulty focusing her vision, but nothing more specific. This concerned her daughter, who arrived home around 1400. She was brought to the ED as a stroke alert, but not given tPA due to being out of the thrombolytic window. CTA showed no hemodynamically significant stenosis or occlusions amenable to intervention. She was admitted for further workup. There was no indication of focal weakness, sensory loss, gait change, speech change. She has chronic episodic vertigo. She also has a history of syncope and afib. She has refused anticoagulation against medical advice and only takes ASA 81mg daily. She has experienced episodes of AMS in the past related to dehydration. INTERVAL HISTORY: 10/28: Patient feels her language function and cognition is much better. No new complaints. No events overnight. EXAM: VS reviewed in EMR GEN: WDWN sitting in NAD MS: awake, alert, oriented to all spheres. Speech nondysarthric. On formal language testing she is able to read, write, repeat, name, comprehend without difficulty. Casual conversation is back to normal today. Follows commands. Attends to both sides. Memory seems normal today on casual conversation. Mood euthymic. Good fund of knowledge. CN: pupils 3mm round and reactive. VFF. Primary gaze centered. Restricted vertical gaze. Smooth pursuits with saccadic intrusions. Facial sensation preserved. Face symmetric. Hearing grossly intact to finger rub. Palatoglossal movements intact. Shoulder shrug and head turn strong. MOTOR: normal bulk/tone. No adventitial movements. Full power throughout. SENSORY: symmetric/intact LT/PP in extremities. No extinction. COORD: no ataxia FN/HS. Mellisa preserved. REFLEX: plantars down. No clonus. DTRS absent. GAIT: deferred to PT safety eval DATA REVIEW: Labs reviewed in EMR LDL 124 A1c 6 PERSONALLY INTERPRETED RESULTS AND DATA: CT head wo - global volume loss. 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 CTA head/neck per HPI MRI brain wo - global volume loss. Profound confluent periventricular microvascular ischemic change. Chronic right occipital infarct, chronic left basal ganglia infarct. A couple areas of punctate acute infarct in the left frontal lobe. Multitude of scattered SWI signal changes in the cortex, subcortical white matter, basal ganglia, posterior fossa most consistent with amyloid angiopathy. IMPRESSION AND RECOMMENDATIONS: // ACUTE ISCHEMIC STROKE // WORD FINDING DIFFICULTY - RESOLVED // COGNITIVE IMPAIRMENT - IMPROVED // CEREBRAL AMYLOID ANGIOPATHY // VERTIGO // AFIB NOT ON ANTICOAGULATION Patient with word finding issues and expressive language dysfunction in the setting of MRI evidence of left frontal lobe infarcts, likely from her afib. Her MRI also discovered profound cerebral amyloid angiopathy. With that finding anticoagulation would be contraindicated. I discussed the findings with the patient and her daughter at length. I recommend continuing on ASA 81mg daily as the safest antithromboembolic strategy. I do think it is worth having her consult with our structural heart team for consideration of a EDILBERTO occlusion procedure to minimize her risk of stroke. - MRI brain wo - cont ASA - 81mg daily - goal normotension - high intensity statin for goal LDL < 70 - A1c at goal < 6.5 - PT/OT/WAITER/WAITRESS INFORMAL consults - stroke education - can be discharged home today after WAITER/WAITRESS INFORMAL eval for therapy recommendations after discharge. - followup PCP, structural heart after discharge - followup with neurology in 10 weeks 40 mins in direct patient care activities on the floor with most spent in counseling patient and daughter. Objective: Vital Signs Temp Pulse Resp BP Pulse Ox 36.3 C 76 18 125/70 H 91 L 10/28/17 07:47 10/28/17 07:47 10/28/17 07:47 10/28/17 07:47 10/28/17 07:47 10/27/17 10/28/17 10/29/17 05:59 05:59 05:59 Intake Total 200 Balance 200 PT 12.5 SEC (12.0-15.0) 10/26/17 15:56 INR 0.91 (0.83-1.16) 10/26/17 15:56 Allergies/Adverse Reactions: gluten Allergy (Verified 10/27/17 21:43) latex Allergy (Verified 10/26/17 15:37)
--- NOTE | 2017-10-28 11:35 | PDIAF ---
- Diagnosis Diagnosis: cva Code Status: Do Not Resuscitate - Medication Management Discharge Medications: Medications to Continue on Transfer Aspirin [Aspirin 81mg (*)] 81 mg PO HS #0 03/11/15 [Last Taken 10/26/17] Fluticasone Nasal [Flonase Nasal [place]] 2 sprays NASAL DAILY 03/11/15 [Last Taken 10/26/17] Herbals/Supplements -Info Only 1 ea PO DAILY 03/11/15 [Last Taken 10/26/17] Lact Cmb2/S.thermophl/Bif Cmb1 [Vsl#3 Cap (*)] 1 each PO DAILY 03/11/15 [Last Taken 10/26/17] Lipase/Protease/Amylase [Rikki Ibrahim 36,000 Units Capsule] 2 each PO TIDMEAL [Last Taken 10/26/17] Multivitamins [Multivitamin (*)] 1 each PO DAILY 03/11/15 [Last Taken Unknown] [place]-3 Fatty Acids [Fish Oil 1000 mg (*)] 3,000 mg PO DAILY 03/11/15 [Last Taken 10/26/17] cycloSPORINE 0.05% [Restasis Opht Drops(*)] 1 drop EACHEYE BID 03/11/15 [Last Taken 10/25/17] Mirabegron [Myrbetriq] 50 mg PO DAILY 10/26/17 [Last Taken 10/26/17] Acetaminophen [Tylenol 325mg (*)] 650 mg PO Q4HRS PRN tab 10/28/17 [Last Taken Unknown] Atorvastatin Calcium [Lipitor 20 mg (*)] 40 mg PO DAILY #60 tab 10/28/17 [Last Taken Unknown] Polyethylene Glycol 3350 [Miralax 17 gm (*)] 17 gm PO DAILY PRN pkt 10/28/17 [ Last Taken Unknown] Sennosides/Docusate Sodium [Senokot-S] 1 - 2 tab PO BID tab 10/28/17 [Last Taken Unknown] Discharge Medications: Refer to the Discharge Home Medication list for PRN reason. PICC Care - Routine: N/A - Orders Services needed: Home Care, Physical Therapy, Occupational Therapy, Speech Language Pathologist Home Care Face to Face: I certify that this patient was under my care and that I had the required [id number] encounter meeting the encounter requirements on the discharge day. My findings support the fact that the patient is homebound as defined in Home Care Face to Face Continued: CMS Chapter 7 Medicare Benefits Manual 30.1.1 , The condition of the patient is such that there exists a normal inability to leave home and consequently, leaving home would require a considerable and taxing effort. Diet Recommendation: no restrictions on diet - Follow Up Care Current Providers and Referrals: Brittany Lacey MD [Primary Care Provider] -
[2017-10-28 11:41] VITALS: BP 119/71; PULSE 61; RESP 16; TEMP 97.6; O2SAT 94
--- NOTE | 2017-10-28 13:02 | ASMTCMCOM ---
CM Note CM Note Notes: Dc order received. Spoke with OIL FIELD TECHNICIAN. PT recommending home vs HHC. Met with pt, her daughter Maegan ([phone]) & one of pt's private duty caregivers; pt agreeable to [facility] for ST/OT/PT. Address & phone number confirmed. Discussed HHC agencies; [facility] chosen. Spoke with Daniela, at [facility]; informed [facility] doesnt take [employer] advantage plans. Alerted pt & Maegan; Chauncey [facility] chosen. Spoke with Jeremiah ([phone]), at [facility]; informed [facility] will need an insurance auth from [employer], but that wont happen until Monday, 10/30; Jeremiah agreeable to accepting pt at this time & will attempt to get auth on Monday. If Jeremiah cannot get [employer] auth she will assist pt in getting home care arranged with an agency that can. Jeremiah provided with pt's contact info. Jeremiah to followup with pt's daughter Maegan later today. Dc paperwork faxed to [facility]; confirmed received. Updated pt, Maegan & RN. No other needs at this time. Date Signed: 10/28/2017 01:01 PM Electronically Signed By:Annetta Duffy, RN
--- NOTE | 2017-10-28 13:04 | ASDISCHSUM ---
Discharge Information Plan Status:Home with Home Health Medically Cleared to Leave:10/27/2017 Discharge Date:10/27/2017 CM D/C Disposition:Home Health w Planned Readm iss ADT D/C Disposition:Home Health Service Projected Discharge Date:10/28/2017 01:00 PM Transportation at D/C:Family Discharge Delay Reason: Follow-Up Date:10/28/2017 01:00 PM Discharge Slot: Final Diagnosis: Placement Information Referral Type:*Home Health Care Services Referral ID:[id number] Provider Name:[facility] Address 1:[address] [address] Address 2: City:[place] Selection Factors: State:[place] Patient Contact Information Contact Name:KATEBLANKJAH Relationship:Daughter Address:[address] City:[place] Alternate Phone: State/Zip Code:[place] [address] Email: Financial Information Financial Class:Medicare Advantage Plans Primary Plan Desc:[employer] MEDICARE ADV Primary Plan Number:[id number] Secondary Plan Desc: Secondary Plan Number: Assessment Information [facility] CM Progress Note CM Note CM Note Notes: Discussed w/hospitalist; pt still being worked up. DC needs not clear yet, awaiting therapy recommendations. Pt lives at home w/daughter. CM will follow. Date Signed: 10/27/2017 01:24 PM Electronically Signed By:Lelo Wolf RN [facility] CM Progress Note CM Note CM Note Notes: Dc order received. Spoke with FORTUNE COOKIE MAKER. PT recommending home vs C. Met with pt, her daughter Maegan ([phone]) & one of pt's private duty caregivers; pt agreeable to [facility] for ST/OT/PT. Address & phone number confirmed. Discussed [facility] agencies; [facility] chosen. Spoke with Daniela, at [facility]; informed [facility] doesnt take [employer] advantage plans. Alerted pt & Maegan; Chauncey [facility] chosen. Spoke with Jeremiah ([phone]), at [facility]; informed [facility] will need an insurance auth from [employer], but that wont happen until Monday, 10/30; Jeremiah agreeable to accepting pt at this time & will attempt to get auth on Monday. If Jeremiah cannot get [employer] auth she will assist pt in getting home care arranged with an agency that can. Jeremiah provided with pt's contact info. Jeremiah to followup with pt's daughter Maegan later today. Dc paperwork faxed to [facility]; confirmed received. Updated pt, Maegan & RN. No other needs at this time. Date Signed: 10/28/2017 01:01 PM Electronically Signed By:Annetta Duffy RN Intervention Information Intervention Type:*RADHIKA-Signed Date of Service:10/27/2017 09:41 AM Patient Type:Observation Staff Member:Tammy Lyman Hours: Discipline: Severity: Comment:
[2017-10-28] MEDS: FLUTICASONE NASAL 120 SPRAYS/16 GM MDI EACHNARE SCH (13:25)
--- NOTE | 2017-10-28 15:08 | GDS ---
[f rep st] DISCHARGE SUMMARY DISCHARGE DIAGNOSES: 1. Acute ischemic stroke. 2. Cerebral amyloid angiopathy. 3. Vertigo. 4. Atrial fibrillation. 5. Hypertension. 6. Hypercholesterolemia. CONSULTATIONS: Neurology. STUDIES AND PROCEDURES DONE: 1. CT of the head. 2. CT angio of the head and neck. 3. MRI of the brain. 4. Echocardiogram. PHYSICAL EXAMINATION: GENERAL: The patient is alert. VITAL SIGNS: Afebrile at 36.4, pulse is 61, respiratory rate 16, blood pressure is 119/71. She is saturating 94% on room air. I have seen and e valuated the patient on the day of discharge. HOSPITAL COURSE: The patient is an 82-year-old female who presented to the emergency room with compl aints of confusion with word finding difficulty. She was evaluated and diagnosed with: 1. Acute ischemic stroke. She did receive a consultation from Neurology. It was noted on MRI that the patient had left frontal lobe infarcts likely related to her atrial fibrillation. 2. Also noted to have profound cerebral amyloid angiopathy. This is preventing the patient from sunil ng able to be anticoagulated, with increased risk for bleeding. She will continue on 81 mg aspirin d ail and follow up in the outpatient setting with her primary care physician. She will also follow u p with the structural heart team for consideration of occlusion procedure to minimize her risk of str matt. 3. Word-finding difficulty. This has resolved. 4. Cognitive impairment. The patient is at her baseline with regard to her mentation. 5. Vertigo. This is resolved. 6. Atrial fibrillation. Again, the patient is in atrial fibrillation during this hospitalization. She is unable to be anticoagulated secondary to her diagnosis of cerebral amyloid angiopathy. She wi ll follow up in the outpatient setting with structural heart team. 7. Hypertension. This is mild. 8. Hypercholesterolemia. The patient has been initiated on Lipitor during this hospitalization and will continue this outside the hospital. DISPOSITION: She will be discharged home with home care and her daughter. PENDING STUDIES: None. DISCHARGE MEDICATIONS: Please refer to EMR form. I will provide the patient a prescription for Lipi tor at the time of disposition. Followup will be with her primary care physician, mirella Arizmendi s well as Dr. Logan. I reviewed the patient's disposition with Dr. Sanabria of Neurology, who is in agreement with this dany n. I spent greater than 35 minutes in care coordination and management of the patient's disposition. /[id number]/[id number]
== END 2017-10-28 14:28 | disposition home health service (06) | DRG 65 ==
LOC: F3N 19:38 → OBSVTOIN 10-27 13:37
PROVIDERS: ADMIT Family Medicine; ATTEND Psychiatry & Neurology Neurology
DX: I63.9 Cerebral infarction, unspecified (principal); E85.4 Organ-limited amyloidosis; I68.0 Cerebral amyloid angiopathy; I10 Essential (primary) hypertension; I48.91 Unspecified atrial fibrillation; E78.00 Pure hypercholesterolemia, unspecified; R42 Dizziness and giddiness; Z85.3 Personal history of malignant neoplasm of breast; Z79.82 Long term (current) use of aspirin; Z85.07 Personal history of malignant neoplasm of pancreas
CPT/HCPCS: 82947-QW; 92523-GN; 97161-GP; G0378; G8978-GP-CJ; G8979-GP-CI; G9168-GN-CJ; G9169-GN-CI; G9169-GN-CJ; G9170-GN-CJ; J1650; Q9967